=== PATIENT | female | born 2000 | race Two or more races ===

== ENCOUNTER 2021-08-25 14:54 | Emergency (ER) | payer OTHER ==
[~2021-08-25] VITALS: Ht 152.4 cm; Wt 47.6 kg
== END 2021-08-25 22:43 | disposition home or self-care (01) ==
LOC: ER 14:54 → EMR PED 14:54
DX: S05.02XA Injury of conjunctiva and corneal abrasion without foreign body, left eye, initial encounter (principal); R51.9 Headache, unspecified; R09.81 Nasal congestion; Z88.9 Allergy status to unspecified drugs, medicaments and biological substances